=== PATIENT | female | born 1985 | race Two or more races ===

== ENCOUNTER 2016-05-20 10:39 | Emergency (ER) | payer MEDICAID, OTHER ==
[2016-05-20 10:58] VITALS: RESP 16; TEMP 98.8
--- NOTE | 2016-05-20 11:58 | UCPHY ---
H & P Time Seen by Provider: 05/20/16 11:02 Patient Type: New HPI/ROS: CHIEF COMPLAINT: Cough HPI: The patient is a 22-year-old female with no significant past medical history. The patient complains of cough productive of clear and yellow sputum for the past month. She has tried [id number] cold medicine without relief. She denies recent fever or chest pain. She denies body aches. She denies hemoptysis. REVIEW OF SYSTEMS: Aside from elements discussed in the HPI, a comprehensive 10-point review of systems was reviewed and is negative. PMH: None significant. SOCIAL HISTORY: Denies alcohol or drug abuse. FAMILY HISTORY: Reviewed, noncontributory PHYSICAL EXAM: General:Patient is alert, in no acute distress. ENT:Eyes are normal to inspection. ENT inspection normal. Neck: Normal inspection. Full range of motion. Respiratory:No respiratory distress. Breath sounds normal bilaterally. Cardiovascular: Regular rate and rhythm. Strong peripheral pulses. Normal cap refill. Abdomen:The abdomen is nontender to palpation. There are no peritoneal signs. There are normal bowel sounds. Back: Normal to inspection. No tenderness to palpation. Skin: Normal color. No rash. Warm and dry. Extremities: Normal appearance. Full range of motion. Neuro: Oriented x3. Normal motor function. Normal sensory function. Smoking Status: Former smoker Constitutional: Initial Vital Signs Temperature (C) 37.1 C 05/20/16 10:53 Heart Rate 98 05/20/16 10:53 Respiratory Rate 16 05/20/16 10:53 Blood Pressure 125/91 H 05/20/16 10:53 O2 Sat (%) 96 05/20/16 10:53 O2 Delivery Mode Room Air Allergies/Adverse Reactions: No Known Allergies Allergy (Verified 05/20/16 10:56) Home Medications: Medication Instructions Recorded AZITHROMYCIN [Z-PACK] 250 mg PO DAILY 5 Days 05/20/16 predniSONE 60 mg PO DAILY 3 Days 05/20/16 MDM/Departure - MDM Diagnostics: Chest x-ray interpreted and reviewed by myself is negative for pneumonia or other acute process. ED Course/Re-evaluation: This patient presents with 1 month of cough. She is healthy, well-appearing and not hypoxic. Per her request she will receive azithromycin. We discussed strict return precautions. I see no sign of pneumonia, CHF or pulmonary embolus. - Depart Disposition: Home, Routine, Self-Care Clinical Impression: Bronchitis Condition: Good Instructions: Acute Bronchitis (ED) Additional Instructions: Return to the emergency department or urgent care for fever, chest pain, worsening cough. Follow up with your primary care physician within 1 week. Prescriptions: AZITHROMYCIN [Z-PACK] 250 mg PO DAILY 5 Days predniSONE 60 mg PO DAILY 3 Days Referrals: RADHA FINNEGAN [Primary Care Provider] - As per Instructions - PQRS PQRS Measurement: 134: Depression screening and followup, PRIME MD-PHQ2 (12 years and older) Over the last 2 weeks, how often have you been bothered by any of the following problems? 1. Feeling down, depressed, or hopeless? 2. Little interest or pleasure in doing things? Patient answered no to both 1 and 2 130: Documentation of medications. Reviewed all patient medications, doses, route and frequency. 226: Do you smoke? No. 51: 18 years old and older with diagnosis of COPD, spirometry performance. Spirometry not performed; equipment not available. Patient has no history of COPD 52: 18 years old and older with COPD and symptoms of COPD or FEV1<60% predicted prescribed a B Agonist. Spirometry not performed; equipment not available.
[2016-05-20 12:02] VITALS: BP 128/88; PULSE 100; O2SAT 98
== END 2016-05-20 12:02 | disposition home or self-care (01) ==
LOC: CED 10:39
DX: J40 Bronchitis, not specified as acute or chronic (principal)
CPT/HCPCS: 71020-PO; 99204-PO; G0463-PO